=== PATIENT | male | born 1985 | race Two or more races ===

== ENCOUNTER 2018-06-07 21:05 | Emergency (ER) | payer OTHER ==
[~2018-06-07] VITALS: Ht 165.1 cm; Wt 78.9 kg
--- NOTE | 2018-06-07 21:14 | NUR ---
PT C/O HEADACHE. PER PT FELL A WEEK AGO AND HIT HEAD. per triage note pt walked in ed rm 19 with stable gait with
[2018-06-07] MEDS ORDERED: ATOR10TA9 PO (21:24)
--- NOTE | 2018-06-07 21:24 | NUR ---
dr garcia at bedside explained all symptoms pt has . explaining and translating to erp vss stable pt [id number] no other any symptoms has only concussion has
--- NOTE | 2018-06-07 21:32 | NUR ---
erp explained to pt and family d/t pt's current condition stable
[2018-06-07] MEDS ORDERED: PROCHLORPERAZINE 5 MG/ML, 2ML ONE (21:42)
[2018-06-07] MEDS ORDERED: DIPHENHYDRAMINE 50 MG/ML, 1ML ONE (21:42)
[2018-06-07] MEDS ORDERED: KETOROLAC 30 MG/1 ML ONE (21:42)
--- NOTE | 2018-06-07 21:58 | NUR ---
all meds were given pt tolerated well
[2018-06-07] MEDS ORDERED: PROCHLORPERAZINE 5 MG/ML, 2ML IVPush ONE (22:00)
[2018-06-07] MEDS ORDERED: KETOROLAC 30 MG/1 ML IVPush ONE (22:00)
[2018-06-07] MEDS ORDERED: DIPHENHYDRAMINE 50 MG/ML, 1ML IVPush ONE (22:00)
--- NOTE | 2018-06-07 22:12 | NUR ---
if pt is stable after given meds then pt yasmany be dc'd per dr garcia
--- NOTE | 2018-06-07 22:14 | NUR ---
pt needs more time to be dc'd per dr garcia
--- NOTE | 2018-06-07 22:34 | NUR ---
given dc instruction pt and understood pt up ambulated with stable gait for check out after iv was out vss stable
[2018-06-07 22:39] VITALS: BP 122/79
== END 2018-06-07 22:41 | disposition home or self-care (01) ==
LOC: ED 21:34
DX: S06.0X9A Concussion with loss of consciousness of unspecified duration, initial encounter (principal); F07.81 Postconcussional syndrome; W01.0XXA Fall on same level from slipping, tripping and stumbling without subsequent striking against object, initial encounter; Y93.89 Activity, other specified; Y92.89 Other specified places as the place of occurrence of the external cause; Y99.8 Other external cause status
CPT/HCPCS: 96374; 96375; 99283; J0780; J1200; J1885

== ENCOUNTER 2018-06-17 09:58 | Outpatient (CLI) | payer OTHER ==
[~2018-06-17 09:58] MED LIST: ATOR10TA9 PO
== END 2018-06-17 23:59 | disposition home or self-care (01) ==
LOC: CFH 09:58
PROVIDERS: ATTEND Family Medicine
DX: S09.90XA Unspecified injury of head, initial encounter (principal); X58.XXXA Exposure to other specified factors, initial encounter; Y93.89 Activity, other specified; Y92.89 Other specified places as the place of occurrence of the external cause; Y99.8 Other external cause status
CPT/HCPCS: 70450

== ENCOUNTER → 2018-08-30 | Outpatient (CLI) | payer OTHER ==
[2018-08-30 07:37] LABS: BASOPHILS # (AUTO) 0.02 x10^3/uL (0-0.1); BASOPHILS % (AUTO) 0 % (0-1); EOSINOPHILS # (AUTO) 0.08 x10^3/uL (0-0.4); EOSINOPHILS % (AUTO) 1 % (1-7); LYMPHOCYTES # (AUTO) 1.72 x10^3/uL (1-3.4); LYMPHOCYTES % (AUTO) 29 % (22-44); MD NO; MEAN CORPUSCULAR HEMOGLOBIN 29.4 pg (27.5-34.5); MEAN CORPUSCULAR HGB CONC 33.2 g/dL (33.2-36.2); MEAN CORPUSCULAR VOLUME 88.8 fL (81-97); MEAN PLATELET VOLUME 8.5 fL (7.4-10.4); MONOCYTES # (AUTO) 0.31 x10^3/uL (0.2-0.8); MONOCYTES % (AUTO) 5 % (2-9); NEUTROPHILS % (AUTO) 65 % (42-75); PLATELET COUNT 246 x10^3/uL (130-400); RED BLOOD COUNT 5.49 x10^6/uL (4.38-5.82); RED CELL DISTRIBUTION WIDTH 13.4 % (9.4-14.8)
[2018-08-30 07:47] LABS: ALBUMIN 4.2 g/dL (3.4-5.0); ANION GAP 4 mmol/L (5-15); CALCIUM 8.7 mg/dL (8.5-10.1); CHLORIDE 110 mmol/L (98-107)
[2018-08-30 07:58] LABS: ALANINE AMINOTRANSFERASE 51 U/L (12-78); ALKALINE PHOSPHATASE 120 U/L (45-117); BILIRUBIN,TOTAL 0.9 mg/dL (0.2-1.0); CHOL/HDL RATIO 4.2; CHOLESTEROL, TOTAL 165 mg/dL (140-239); CREATININE 0.92 mg/dL (0.7-1.3); HDL CHOL % 24 % (26-37); HDL CHOLESTEROL (DIRECT) 39 mg/dL (40-60); LDL CHOLESTEROL,CALCULATED 105 mg/dL (54-169); LDL/HDL RATIO 2.7 (0.5-3.0); THYROID STIMULATING HORMONE 0.857 mIU/L (0.358-3.740); TOTAL PROTEIN 7.2 g/dL (6.4-8.2); TRIGLYCERIDES 103 mg/dL (50-200); VLDL CHOLESTEROL 21 mg/dL (0-25)
[2018-08-30 08:11] LABS: HEMOGLOBIN A1C 5.6 % (4.2-6.3)
== END | disposition home or self-care (01) ==
LOC: LAB 07:07
PROVIDERS: ATTEND Family Medicine
DX: Z13.1 Encounter for screening for diabetes mellitus (principal); Z13.89 Encounter for screening for other disorder; E78.5 Hyperlipidemia, unspecified; G47.33 Obstructive sleep apnea (adult) (pediatric)
CPT/HCPCS: 36415; 80053; 80061; 82306; 83036; 84443; 85025